=== PATIENT | female | born 1980 | race African-American/Black ===

== ENCOUNTER 2019-02-04 12:35 | Emergency (ER) | payer MEDICAID ==
[~2019-02-04] VITALS: Ht 162.6 cm; Wt 84.1 kg
[2019-02-04 12:41] VITALS: Ht 162.6 cm; Wt 84.1 kg
[2019-02-04 13:09] LABS: BASOPHILS 0.3 % (0-2); EOSINOPHILS 1.1 % (0-7); HEMATOCRIT 36.1 % (36.0-48.0); HEMOGLOBIN 12.6 g/dL (12-16); IMMATURE GRANULOCYTES 0.3 % (0-5); LYMPHOCYTES 27.1 % (15-50); MCHC 34.9 g/dL (31.0-37.0); MCV 88.7 fL (80.0-100.0); MEAN PLATELET VOLUME 10.9 fL (7.4-10.4); MONOCYTES 9.3 % (2-11); NEUTROPHILS 61.9 % (40-80); PLATELET COUNT 227 10x3/uL (130-400); RBC 4.07 10x6/uL (4.00-5.40); RDW 14.1 % (11.5-14.5); WBC 7.3 10x3/uL (4.8-10.8)
[2019-02-04 13:13] LABS: APPEARANCE HAZY (CLEAR); BILIRUBIN NEGATIVE (NEGATIVE); COLOR YELLOW (YELLOW); GLUCOSE NEGATIVE (NEGATIVE); KETONE NEGATIVE (NEGATIVE); NITRITE NEGATIVE (NEGATIVE); PROTEIN NEGATIVE (NEGATIVE); SPECIFIC GRAVITY 1.025 (1.005-1.020)
[2019-02-04 13:21] LABS: ALBUMIN 3.3 g/dL (3.4-5.0); ALKALINE PHOSPHATASE 51 U/L (46-116); ALT (SGPT) 17 U/L (10-68); CALC OSMOLALITY 274 mosm/kg (275-300); CALCIUM 9.3 mg/dL (8.5-10.1); CARBON DIOXIDE 25.9 mmol/L (21.0-32.0); CHLORIDE - SERUM 104 mmol/L (98-107); CREATININE - SERUM 0.7 mg/dL (0.6-1.3); GLUCOSE 91 mg/dL (74-106); PROTEIN - SERUM 6.9 g/dL (6.4-8.2); SODIUM 137 mmol/L (136-145); UREA NITROGEN 16 mg/dL (7-18); eGFR NON AFRICAN AMERICAN > 90 mL/min (90-120)
[2019-02-04 13:24] LABS: AMYLASE - SERUM 49 U/L (25-115); LIPASE 178 U/L (73-393); TROPONIN-I < 0.017 ng/mL (0.000-0.060)
[2019-02-04 13:33] LABS: HCG SERUM POSITIVE (NEGATIVE)
[2019-02-04 16:49] VITALS: BP 120/67
== END 2019-02-04 16:55 | disposition home or self-care (01) ==
LOC: D.ER 12:35
PROVIDERS: Family Medicine
DX: Z32.01 Encounter for pregnancy test, result positive (principal); Z3A.10 10 weeks gestation of pregnancy

== ENCOUNTER → 2019-06-30 08:19 | Outpatient (CLI) | payer MEDICAID ==
[2019-02-04 12:41] VITALS: BMI 31.8
[2019-06-30 10:06] LABS: APPEARANCE CLEAR (CLEAR); COLOR YELLOW (YELLOW); SPECIFIC GRAVITY 1.005 (1.005-1.020)
[2019-06-30 10:07] LABS: BILIRUBIN NEGATIVE (NEGATIVE); GLUCOSE NEGATIVE (NEGATIVE); KETONE NEGATIVE (NEGATIVE); NITRITE NEGATIVE (NEGATIVE); PROTEIN NEGATIVE (NEGATIVE); UROBILINOGEN NORMAL (NORMAL)
== END | disposition home or self-care (01) ==
LOC: D.LDO 08:19
PROVIDERS: ATTEND Obstetrics & Gynecology
DX: O26.899 Other specified pregnancy related conditions, unspecified trimester (principal); Z3A.00 Weeks of gestation of pregnancy not specified; R10.9 Unspecified abdominal pain

== ENCOUNTER 2019-08-25 05:26 | Inpatient (IN) | payer MEDICAID ==
[~2019-08-25] VITALS: Ht 162.6 cm; Wt 145.6 kg
[2019-08-25 06:05] VITALS: BP 128/67; Ht 162.6 cm; Wt 145.6 kg
[2019-08-25 06:21] LABS: HEMATOCRIT 32.5 % (36.0-48.0); HEMOGLOBIN 10.6 g/dL (12-16); MCH 29.6 pg (26.0-34.0); MCHC 32.6 g/dL (31.0-37.0); MCV 90.8 fL (80.0-100.0); MEAN PLATELET VOLUME 10.1 fL (7.4-10.4); PLATELET COUNT 240 10x3/uL (130-400); RBC 3.58 10x6/uL (4.00-5.40); RDW 14.5 % (11.5-14.5); WBC 9.4 10x3/uL (4.8-10.8)
[2019-08-25 07:37] LABS: BASOPHILS 0.1 % (0-2); IMMATURE GRANULOCYTES 1.7 % (0-5); LYMPHOCYTES 16.8 % (15-50); MONOCYTES 9.5 % (2-11); NEUTROPHILS 70.9 % (40-80)
--- NOTE | 2019-08-25 09:42 | NUR ---
0922 FUNAL HEIGHT AT UMBILICUS, SLIGHTLY FIRM MIDLINE, FUNDAL MASSAGE PERFORMED. FEW CLOTS EXPELLED OUT OF VAGINA. UTERUS FIRM NOW
[2019-08-25 09:53] VITALS: BP 122/74
[2019-08-25 10:00] VITALS: BP 120/68
--- NOTE | 2019-08-25 10:30 | NUR ---
pt states "i took my bp cuff off because it was bothering me". explained to pt importance of keeping bp cuff on, pt agrees. bp replaced. pt is sitting up in the bed, , latching well. pt denies needs at this time. srup x2, call light and phone within reach.
--- NOTE | 2019-08-25 11:00 | NUR ---
dietary serves clear liquid lunch tray. pt states "the toradol did help quite a bit." see emar for pain assess/reassess. pt served large mug of ice water. srup x2, call light and phone within reach.
--- NOTE | 2019-08-25 14:15 | NUR ---
to pt's room, fundus firm, u/1, small rubra lochia, no clots. perineal care done with foam cleanser and washcloths. peritowels/chux and peripads changed. pt repositioned to right tilt, with pillow placed under back for support and comfort. fresh ice packs placed over gown to incision. incisional dressing remains c/d/i. incentive spirometer explained and then demonstrated by pt x 3. pt uses this well. vss. srup x2, call light and phone within reach.
--- NOTE | 2019-08-25 18:00 | NUR ---
pt is sitting up in the bed infant. peripads changed, small rubra lochia, casas cath noted to be draining marina urine. incisional dressing remains c/d/i. pt has clear liquid tray at bedside. pt denies all other needs. srup x2, call light and phone within reach.
--- NOTE | 2019-08-25 19:00 | NUR ---
REPORT RECEIVED FROM VIDYA ALBA
--- NOTE | 2019-08-25 19:43 | NUR ---
PATIENT SITTING UP IN BED. STATES PAIN 4 OUT OF 10. TORADOL 30 MG ADMINISTERED SLOW IVP. ASSESSMENT AND VITAL SIGNS DONE. RESPIRATIONS AT EASE. LUNG SOUNDS CLEAR IN ALL CARO. HEART REGULAR RATE AND RHYTHM. ABDOMEN SOFT, NON DISTENDED. BOWEL SOUNDS PRESENT IN ALL QUADRANTS. FUNDUS FIRM, 2 BELOW UMBILICUS, MIDLINE. LOCHIA RUBRA. SCANT AMOUNT NOTED ON DREAD PAD. DRESSING NOTED TO ABDOMEN. DRESSING INTACT. NO DRAINAGE NOTED TO DRESSING. SWARTZ CATHETER INTACT. JENNIFER COLOR URINE FLOWING TO GRAVITY. NO EDEMA NOTED TO EXTREEMITIES. SCD'S ON BLE. SCD'S ON AND WORKING. PATIENT DENIES ANY FURTHER NEEDS OR CONCERNS. BED IN LOWEST POSITION, SIDE RAILS UP X 2, C/L AND WATER WITHIN REACH.
[2019-08-25 19:54] VITALS: BP 131/60
--- NOTE | 2019-08-25 20:25 | NUR ---
PATIENT C/O ITCHING. DR. TREJO CALLED AND REPORTED PATIENT C/O ITCHING. ORDERS RECEIVED TO ADMINISTER BENEDRYL 50 MG IV PRN EVERY 6 HOURS. ORDERS REPEATED AND VERIFIED.
--- NOTE | 2019-08-25 20:33 | NUR ---
ADMINISTERED BENEDRYL 50 MG SLOW IVP PRN ITCHING PER ORDERS. PATIENT DENIES ANY FURTHER NEEDS. BED IN LOWEST POSITION, SIDE RAILS UP X 2, C/L AND WATER WITHIN REACH.
--- NOTE | 2019-08-25 21:30 | NUR ---
PATIENT SITTING UP IN BED. STATES ITCHING IS BETTER. DENIES PAIN. DENIES ANY NEEDS OR CONCERNS AT THIS TIME. PATIENT REPOSITIONED SELF IN BED TO L SIDE. DENIES ANY FURTHER NEEDS. PATIENT EDUCATED ON USE OF INCENTIVE SPIROMETER AND COUGHING AND DEEP BREATHING. PATIENT DEMONSTATED KNOWLEDGE. BED IN LOWEST POSITION, SIDE RAILS UP X 2, C/L AND WATER WITHIN REACH.
--- NOTE | 2019-08-25 22:30 | NUR ---
PATIENT SITTING UP IN BED. DENIES PAIN. DENIES ANY NEEDS OR CONCERNS. BED IN LOWEST POSITION, SIDE RAILS UP X 2, C/L AND WATER WITHIN REACH.
[2019-08-25 23:26] VITALS: BP 116/57
--- NOTE | 2019-08-25 23:26 | NUR ---
PATIENT LYING QUIETLY IN BED WITH EYES CLOSED. EASILY AROUSED. VITAL SIGNS DONE. PATIENT DENIES ANY FURTHER NEEDS. LYING ON BACK IN OPWN CRIB WITH EYES CLOSED AND RESPIRATIONS AT EASE. OPEN CRIB AT BEDSIDE. BED IN LOWEST POSITION, SODE RAILS UP X 2, C/L AND WATER WITHIN REACH.
--- NOTE | 2019-08-26 01:10 | NUR ---
PATIENT LYING QUIETLY IN BED WITH EYES CLOSED. EASILY AROUSED. PATIENT REPOSITIONED SELF IN BED TO R SIDE. NEW ICE PACK APPLIED TO INCISION. DENIES PAIN. DENIES ANY NEEDS OR CONCERNS. BED IN LOWEST POSITION, SIDE RAILS UP X 2, C/L AND WATER WITHIN REACH.
[2019-08-26 03:00] VITALS: BP 131/65
--- NOTE | 2019-08-26 03:02 | NUR ---
PATIENT SITTING UP IN BED. DENIES ANY PAIN. VITAL SIGNS DONE. REQUESTS FOR COFFEE. DENIES ANY FURTHER NEEDS. BED IN LOWEST POSITION, SIDE RAILS UP X 2, C/L AND WATER WITHIN REACH.
--- NOTE | 2019-08-26 03:47 | NUR ---
HYDROMORPHONE 6MG/30 ML SYRINGE CHANGED AT THIS TIME. WITNESSED BY MADELINE ALBA.
--- NOTE | 2019-08-26 05:15 | NUR ---
PATIENT SITTING UP IN BED. DENIES PAIN. DREAD PADS CHANGED AND DREAD CARE DONE AT THIS TIME. DRESSING REMOVED AT THIS TIME. INCISION INTACT, DEN NOTED. NO REDNESS, EDEMA, OR DRAINAGE NOTED. BED IN LOWEST POSITION, SIDE RAILS UP X 2, C/L AND WATER WITHIN REACH.
[2019-08-26 05:27] LABS: BASOPHILS 0.2 % (0-2); EOSINOPHILS 0.4 % (0-7); HEMOGLOBIN 10.1 g/dL (12-16); IMMATURE GRANULOCYTES 0.7 % (0-5); LYMPHOCYTES 11.9 % (15-50); MCH 29.5 pg (26.0-34.0); MCHC 32.6 g/dL (31.0-37.0); MCV 90.6 fL (80.0-100.0); MEAN PLATELET VOLUME 10.3 fL (7.4-10.4); MONOCYTES 7.9 % (2-11); NEUTROPHILS 78.9 % (40-80); PLATELET COUNT 238 10x3/uL (130-400); RBC 3.42 10x6/uL (4.00-5.40); RDW 14.6 % (11.5-14.5)
[2019-08-26 05:28] LABS: WBC 12.6 10x3/uL (4.8-10.8)
--- NOTE | 2019-08-26 05:45 | NUR ---
PATIENT SITTING UP IN BED. DENIES PAIN AT THIS TIME. SWARTZ CATHETER BAG EMPTIED. 700 CC'S OF JENNIFER COLOR URINE OBTAINED. DREAD PADS CHANGED. DREAD CARE GIVEN. PATIENT DENIES ANY FURTHER NEEDS. BED IN LOWEST POSITION, SIDE RAILS UP X 2, C/L AND WATER WITHIN REACH.
--- NOTE | 2019-08-26 06:10 | NUR ---
PATIENT SITTING UP IN BED HOLDING . DENIES PAIN. SWARTZ CATHETER BAG EMPTIED. OBTAINED 700 CC'S OF JENNIFER COLOR URINE. PATIENT DENIES ANY FURTHER NEEDS. BED IN LOWEST POSITION, SIDE RAILS UP X 2, C/L AND WATER WITHIN REACH.
[2019-08-26 07:11] LABS: RAPID PLASMA REAGIN Non Reactive (Non Reactive)
--- NOTE | 2019-08-26 07:45 | NUR ---
dr. khan on unit, to pt's room to speak with her.
--- NOTE | 2019-08-26 08:00 | NUR ---
dr. khan at [facility], asked if we would be advancing pt this am. states "i have a meeting to go to and will be back".
[2019-08-26 08:24] VITALS: BP 125/60
--- NOTE | 2019-08-26 09:30 | NUR ---
to pt's room for am assessment. assessment completed. see flowsheet. abdomen palpates soft, fundus firm, u/1, small rubra lochia. pericare done with warm wet washcloths, chux changed. casas cath draining dark yellow urine, 1200 ml's noted in casas cath bag, urine is loss claim clerk in color than yesterday. pt states "i have been drinking more water today". pt has scd's off, states "i don't like those things so i took them off". explained to pt importance of wearing scd's as ordered by dr. khan post op. scd's placed back on pt. pt continues to use i/s well. pt denies sob, difficulty breathing, or n/v. sr up x2, call light and phone within reach.
[2019-08-26 12:00] VITALS: BP 118/70
--- NOTE | 2019-08-26 12:12 | NUR ---
dr. bill eugene md returns phone call. request made to to advance pt to post op day 1 orders. telephone order received to administer norco, and motrin, regular diet, and d/c casas, and saline lock.
--- NOTE | 2019-08-26 12:30 | NUR ---
to pt's room, casas cath dc'd with cath intact, 1400 ml's dark yellow urine in casas bag. pericare done with warm wet washcloths, and foam cleanser. chux changed, and peripad applied. srup x2, call light and phone within reach.
--- NOTE | 2019-08-26 13:26 | NUR ---
ibuprofen 600 mg one po given and norco 10 mg one po given. see emar for meds adm. pt is sitting up in the bed, regular diet served by dietary. large ice water served. pt denies all other needs at this time. srup x2, call light and phone within reach.
--- NOTE | 2019-08-26 15:30 | NUR ---
pt ambulatory in room per self. pt states "i got up to the bathroom to pee by myself, and i went ahead and got my panties and pads on.". pt denies heavy bleeding or passing clots. pt back to bed per self. large ice water served to pt, denies all other needs at this time. srup x2, call light and phone within reach.
--- NOTE | 2019-08-26 18:45 | NUR ---
pt calls out substation wireman light and states "i went to pee, and there is 400 mls in there". pt continues to deny heavy bleeding or passing clots. srup x2, call light and phone within reach.
--- NOTE | 2019-08-26 19:16 | NUR ---
RECEIVED SHIFT REPORT FROM SKYLER BOLDEN RN, PT UP IN SHOWER AT THIS TIME
--- NOTE | 2019-08-26 19:45 | NUR ---
ZHOU RODARTE RN INFORMED PT THAT SHE TOLD PT THAT SHE WAS GOING TO BE [facility]
[2019-08-26 20:15] VITALS: BP 136/89
--- NOTE | 2019-08-26 20:15 | NUR ---
PT TRANSFERRED VIA AMB, GAIT STEADY, TO ROOM 1218, WITH ALL BELONGINGS, PT TO BED, ASSESSMENT PER FLOW SHEET, VS OBTAINED, SALINE LOCK IN RIGHT FA INTACT WITH NO REDNESS OR EDEMA, RE-TAPED, FF, ML, U/1, LITE BLEEDING WITH NO CLOTS, BIKINI INC WITH DEN CDI WITH NO DRAINAGE NOTED, PT INST ON AND VERBALIZES UNDERSTANDING OF INC CARE AND KEEPING A DREAD PAD OVER INC, PT REPORTS FLATUS, NO BM AND VOIDED TWICE BEFORE TRANSFER, EMPTIED 800 MLS OF DARK YELLOW URINE FROM MINDBODY HAT, PT ENC TO DRINK PLENTY OF H20, PT INFORMED SCD'S WILL BE PLACED ON AT BEDTIME, PT VERBALIZES UNDERSTANDING, PT RATES INC PAIN AND CRAMPING 4/10, INFORMED PT THAT I WILL ADM PAIN MED WHEN DUE, PT VERBALIZES UNDERSTANDING, PT ORIENTED TO ROOM, BED IN LOW POSITION, SIDE RAILS X 2, CALL LIGHT IN REACH
--- NOTE | 2019-08-26 21:25 | NUR ---
PT SITTING ON SIDE OF BED, HOLDING , ADM MOTRIN AND NORCO PER MD ORDERS, SEE EMAR, PT PROVIDED DREAD PADS, DENIES FURTHER NEEDS
--- NOTE | 2019-08-26 22:05 | NUR ---
PT RESTING WITH EYES CLOSED, RESP QUIET, NO DISTRESS NOTED, LEFT UNDISTURBED AT THIS TIME, IN OPEN CRIB CART AT BEDSIDE
--- NOTE | 2019-08-27 00:31 | NUR ---
PT RESTING WITH EYES CLOSED, RESP QUIET, NO DISTRESS NOTED, LEFT UNDISTURBED AT THIS TIME, BED IN LOW POSITION, SIDE RAILS X 2, CALL LIGHT IN REACH
[2019-08-27 01:33] VITALS: BP 135/60
--- NOTE | 2019-08-27 01:33 | NUR ---
PT AWAKE, VS OBTAINED, PT RATES INC BURNING 09/16, PT REQUESTS TO TAKE THE PAIN PILL "NOT STRONG EARLIER", ADM NORCO 5 PO PER MD ORDERS, SEE EMAR, PT UP TO BR, GAIT STEADY, VOIDED WITH NO DIFFICULTY, PT BACK TO BED, DENIES FURTHER NEEDS
[2019-08-27 05:00] VITALS: BP 123/66
--- NOTE | 2019-08-27 05:00 | NUR ---
PT AWAKE, VS OBTAINED, RATES INC PAIN AND CRAMPING 2/10, REQUESTED AND SERVED DEBORAH CRACKERS, PEANUT BUTTER, AND FRESH H2O, PT DENIES FURTHER NEEDS
--- NOTE | 2019-08-27 05:58 | NUR ---
INFANT TO ROOM VIA OPEN CRIB CART PER JOANNE CARREON RN
[2019-08-27 07:10] VITALS: BP 119/71
--- NOTE | 2019-08-27 07:10 | NUR ---
VS AND ASSESSMENT DONE. PT SITTING ON SIDE OF BED. IN CRIB. DENIES NEEDS AT THIS TIME. STATES IS PASSING GAS. EXPLAINED THAT WILL OBSERVE INCISION WHEN IS LAYING DOWN NEXT. CALL LIGHT IN REACH.
--- NOTE | 2019-08-27 08:06 | NUR ---
SITTING ON SIDE OF BED- REQUESTING PAIN MEDICATION. STATES PAIN IS 5 ON SCALE OF 0-10. AND STATES THAT SHE IS ABOUT TO WALK ABOUT UNIT.
--- NOTE | 2019-08-27 11:32 | NUR ---
pt states she will take t-dap vaccine before discharge. denies wanting flu shot.
[2019-08-27] MEDS ORDERED: HYDROCODON-ACE1 EA10 PO (14:14)
[2019-08-27] MEDS ORDERED: IBUPROFEN600 MG PO (14:14)
[2019-08-27 14:31] VITALS: BP 110/65
--- NOTE | 2019-08-27 14:37 | NUR ---
SALINE LOCK RT FOREARM REMOVED WITHOUT INCIDENT- CATH TIP INTACT, PRESSURE HELD AND BANDAIDE APPLIED.
--- NOTE | 2019-08-27 16:03 | NUR ---
discharge inst verbal and written given. script for norco and motrin given along with pt med rec and drug data sheets. pfw post and post op inst given. awhonn info sheet given. see also signed inst sheet for info given. pt health summary given.
--- NOTE | 2019-08-27 16:06 | NUR ---
pt states that she will call when she is ready for discharge and w/c to auto. ice water given. up and about in room and hallways as desired.
--- NOTE | 2019-08-27 17:35 | NUR ---
luis antonio call light and states she is ready to go home. discharged home with - to auto via w/cFrida walker.
== END 2019-08-27 17:47 | disposition home or self-care (01) | DRG 788 ==
LOC: D.LD 05:26 → D.WS 08-26 20:15
PROVIDERS: ADMIT Obstetrics & Gynecology; ATTEND Obstetrics & Gynecology
PROC: 10D00Z1 Extraction of Products of Conception, Low, Open Approach (ICD-10-PCS; principal; 2019-08-25 07:30)
DX: O99.214 Obesity complicating childbirth (principal); E66.9 Obesity, unspecified; Z3A.39 39 weeks gestation of pregnancy; Z37.0 Single live birth; O34.219 Maternal care for unspecified type scar from previous cesarean delivery